=== PATIENT | male | born 1990 | race Caucasian/White ===

== ENCOUNTER → 2020-09-08 | Outpatient (CLI) | payer SELFPAY ==
[~2020-09-08] MED LIST: LORTAB 5/500 501 TAB PO; NO HOME MEDICATIONS; NORCO 325 MG-51 TAB PO; PEPCID 20MG TAB20 MG PO
== END ==
LOC: ZCOL.LAB 14:11
DX: R06.02 Shortness of breath (principal); M79.10 Myalgia, unspecified site; R53.83 Other fatigue; G52.0 Disorders of olfactory nerve; Z20.828 Contact with and (suspected) exposure to other viral communicable diseases